=== PATIENT | female | born 1985 | race Caucasian/White ===

== ENCOUNTER → 2016-09-02 | Outpatient (CLI) | payer BC, OTHER ==
[~2016-09-02] MED LIST: ACET500T PO; ANUS2.5C2 PR; DOCU10ELUD PO; IBUP80TA PO; LANOOIN21 TOP; MOM30SS PO; PRENTAB66 PO
[2016-09-02 20:17] LABS: FREE T4 0.82 NG/DL (0.76-1.46)
[2016-09-02 20:20] LABS: PROGESTERONE 0.9 NG/ML; PROLACTIN 7.5 NG/ML
[2016-09-02 20:21] LABS: FOLLICLE STIMULATING HORMONE 4.6 mIU/mL; LUTEINIZING HORMONE 3.4 mIU/mL
== END ==
LOC: M WUC 15:27
PROVIDERS: ATTEND Specialist
DX: N93.8 Other specified abnormal uterine and vaginal bleeding (principal)

== ENCOUNTER → 2017-01-10 | Outpatient (CLI) | payer BC, OTHER ==
[2017-01-10 17:26] LABS: BASO % 0.3 % (0.0-1.0); EOS # 0.1 K/mm3 (0.0-0.50); EOS % 1.3 % (0.0-3.0); LARGE UNSTAINED CELL # 0.1 K/mm3 (0.0-0.4); LARGE UNSTAINED CELL % 1.6 % (0.0-4.0); LYMPH # 1.5 K/mm3 (1.5-4.5); LYMPH % 19.6 % (24.0-44.0); MEAN CORPUSCULAR HEMOGLOBIN 31.5 pg (27.0-33.0); MEAN CORPUSCULAR HGB CONC 33.7 g/dl (32.0-36.5); MEAN CORPUSCULAR VOLUME 93.5 fl (80.0-96.0); MONO # 0.4 K/mm3 (0.0-0.8); MONO % 5.3 % (0.0-5.0); NEUTROPHILS # 5.4 K/mm3 (1.8-7.7); NEUTROPHILS % 71.9 % (36.0-66.0); PLATELET COUNT, AUTOMATED 344 k/mm3 (150-450); RED CELL DISTRIBUTION WIDTH 12.4 % (11.5-14.5); WHITE BLOOD COUNT 7.5 K/mm3 (4.0-10.0)
[2017-01-11 11:06] LABS: HBsAg Prenatal NEGATIVE (NEGATIVE)
== END ==
LOC: M WUC 13:16
PROVIDERS: ATTEND Advanced Practice Midwife
DX: Z34.81 Encounter for supervision of other normal pregnancy, first trimester (principal)

== ENCOUNTER → 2017-01-31 | Outpatient (REF) | payer OTHER | LOC: M LAB REF 17:15 | PROVIDERS: ATTEND Specialist | DX: Z34.82 Encounter for supervision of other normal pregnancy, second trimester (principal) ==

== ENCOUNTER → 2017-02-22 | Outpatient (CLI) | payer BC, OTHER ==
--- NOTE | 2017-02-22 12:06 | REP ---
Obstetric ultrasound for anatomy: There is a single intrauterine gestation in a transverse lie. The head is to the maternal left. There is motion and cardiac activity. The heart rate is 153 beats per minute. The placenta is anterior. There is no placenta previa or abruptio, the inferior tip of the placenta is 3.8 cm above the internal cervical os. The placenta maturity is grade zero. The amniotic fluid volume subjectively is normal. The cervix measures 3.4 cm in length. The maternal adnexa and cul-de-sac are unremarkable. By the ultrasound today the gestational age is 20 weeks 2 days with an LILLY of 07/10/2017. By LMP the gestational age is 20 weeks 4 days with an LILLY of 07/08/2017. weight is 381 grams (a 0 pounds, 13 ounces). This is the 55th percentile for 20 weeks 4 days. The following anatomic structures are identified and are unremarkable: Intracranial lateral ventricles, choroid plexus, cerebellum, cisterna magna, cavum septum pellucidum, upper lip, lungs, four-chamber heart, cardiac right ventricular outflow tract, diaphragm, stomach, cord insertion, three-vessel cord, kidneys, bladder, spine and upper lower extremities. Suboptimally demonstrated is the cardiac left ventricular outflow tract. A followup study of this structure might be considered. Otherwise, no anomalies are identified. Signed by Kirt Lee MD 02/22/2017 11:58 A
== END ==
LOC: M RAD 10:35
PROVIDERS: ATTEND Specialist
DX: Z36.2 Encounter for other antenatal screening follow-up (principal)

== ENCOUNTER → 2017-04-07 | Outpatient (CLI) | payer BC, OTHER ==
[2017-04-07 18:40] LABS: BASO % 0.4 % (0.0-1.0); EOS % 0.9 % (0.0-3.0); IMMATURE GRANULOCYTE % 0.8 % (0-0); LYMPH % 19.8 % (24.0-44.0); MEAN CORPUSCULAR HEMOGLOBIN 30.8 pg (27.0-33.0); MEAN CORPUSCULAR HGB CONC 33.2 g/dl (32.0-36.5); MEAN CORPUSCULAR VOLUME 92.6 fl (80.0-96.0); MONO % 6.5 % (0.0-5.0); NEUTROPHILS % 71.6 % (36.0-66.0); PLATELET COUNT, AUTOMATED 315 10^3/uL (150-450); WHITE BLOOD COUNT 7.5 10^3/uL (4.0-10.0)
[2017-04-07 18:41] LABS: EOS # 0.1 10^3/uL (0.0-0.50); LYMPH # 1.5 10^3/uL (1.5-4.5); MONO # 0.5 10^3/uL (0.0-0.8); NEUTROPHILS # 5.4 10^3/uL (1.8-7.7)
== END ==
LOC: M LAB 14:36
PROVIDERS: ATTEND Specialist
DX: Z34.82 Encounter for supervision of other normal pregnancy, second trimester (principal); Z3A.00 Weeks of gestation of pregnancy not specified

== ENCOUNTER → 2017-04-25 | Outpatient (CLI) | payer BC, OTHER | LOC: M LAB 08:26 | PROVIDERS: ATTEND Specialist | DX: Z34.82 Encounter for supervision of other normal pregnancy, second trimester (principal); Z3A.00 Weeks of gestation of pregnancy not specified ==

== ENCOUNTER → 2017-06-07 | Outpatient (REF) | payer OTHER | LOC: M LAB REF 13:04 | DX: Z34.83 Encounter for supervision of other normal pregnancy, third trimester (principal); Z3A.00 Weeks of gestation of pregnancy not specified ==

== ENCOUNTER → 2017-06-16 | Outpatient (REF) | payer OTHER ==
[2017-06-17 00:29] LABS: CHLAMYDIA DNA AMPLIFICATION NEGATIVE (NEGATIVE); GC DNA AMPLIFICATION NEGATIVE (NEGATIVE)
== END ==
LOC: M LAB REF 17:03
DX: Z11.3 Encounter for screening for infections with a predominantly sexual mode of transmission (principal)

== ENCOUNTER 2017-07-11 02:18 | Inpatient (IN) | payer BC, OTHER ==
[2017-07-11] MEDS ORDERED: FENTANYL 2MCG/ML ROPIVACAINE 0.2% IN 0.9% NACL 200ML IVBAG As Ordered (02:30)
[2017-07-11] MEDS ORDERED: OXYTOCIN 30 UNITS IN 0.9% NaCl 500ML IV BAG (J2590) As Ordered (02:51)
[2017-07-11 02:52] LABS: HEMATOCRIT 37.5 % (36.0-47.0); HEMOGLOBIN 12.4 g/dl (12.0-16.0); MEAN CORPUSCULAR HGB CONC 33.1 g/dl (32.0-36.5); MEAN CORPUSCULAR VOLUME 87.6 fl (80.0-96.0); PLATELET COUNT, AUTOMATED 282 10^3/uL (150-450); RED BLOOD COUNT 4.28 10^6/uL (4.00-5.40); WHITE BLOOD COUNT 8.9 10^3/uL (4.0-10.0)
[2017-07-11] MEDS ORDERED: LIDOCAINE 1% MDV INJ 50 ML VIAL As Ordered (03:02)
[2017-07-11] MEDS ORDERED: METHYLERGONOVINE MALEATE 0.2 MG TAB PO (04:00)
[2017-07-11] MEDS ORDERED: RHOGAM 300 MCG (1500 IU) INJ (J2790) IM (04:00)
[2017-07-11] MEDS ORDERED: ACETAMINOPHEN 500 MG TAB PO (04:00)
[2017-07-11] MEDS ORDERED: DIBUCAINE 1% OINTMENT 30GM TOP (04:00)
[2017-07-11] MEDS ORDERED: MEASLES,MUMPS,RUBELLA VACCINE INJ (MMR-II) (90707) SC (04:00)
[2017-07-11] MEDS ORDERED: DOCUSATE SODIUM 100 MG CAP PO (04:00)
[2017-07-11] MEDS ORDERED: MOM 30ML SUSPENSION UDC PO (04:00)
[2017-07-11] MEDS ORDERED: ANUSOL HC CREAM 30GM TOP (04:00)
[2017-07-11] MEDS: IBUPROFEN 800 MG TAB PO (04:42)
[2017-07-11] MEDS: OXYTOCIN INJ 10 UNITS/ML VIAL (J2590) IM (06:51)
[2017-07-11] MEDS: LIDOCAINE 1% MDV INJ 50 ML VIAL INFIL (06:52)
[2017-07-11] MEDS: PRENATAL VITAMINS CHEWABLE TABLET PO (09:00)
== END 2017-07-12 11:25 | disposition home or self-care (01) | DRG 560 ==
LOC: M LDO 02:18 → M LDI 02:26 → M OBS 05:28
PROVIDERS: Obstetrics & Gynecology
PROC: 10E0XZZ Delivery of Products of Conception, External Approach (ICD-10-PCS; principal; 2017-07-11)
DX: O48.0 Post-term pregnancy (principal); O62.3 Precipitate labor; Z37.0 Single live birth; Z3A.40 40 weeks gestation of pregnancy

== ENCOUNTER → 2017-07-14 | Outpatient (CLI) | payer BC, OTHER | LOC: M RAD 13:09 | DX: M79.605 Pain in left leg (principal) | CPT/HCPCS: 93971 ==

== ENCOUNTER → 2017-12-01 | Outpatient (CLI) | payer BC, OTHER ==
[2017-12-01 18:07] LABS: CONTROL LINE HCG INT CTR LINE PRESENT; HCG, SERUM QUALITATIVE NEGATIVE (NEGATIVE)
[2017-12-01 20:29] LABS: CHLAMYDIA DNA AMPLIFICATION NEGATIVE (NEGATIVE); GC DNA AMPLIFICATION NEGATIVE (NEGATIVE)
== END ==
LOC: M SMT 15:15
DX: N93.0 Postcoital and contact bleeding (principal); Z11.3 Encounter for screening for infections with a predominantly sexual mode of transmission
CPT/HCPCS: 84703

== ENCOUNTER → 2017-12-12 | Outpatient (CLI) | payer BC, OTHER | LOC: M RAD 08:31 | DX: N93.0 Postcoital and contact bleeding (principal); N83.202 Unspecified ovarian cyst, left side | CPT/HCPCS: 76856 ==

== ENCOUNTER → 2018-04-25 | Outpatient (REF) | payer BC, OTHER ==
[2018-04-25 15:52] LABS: CHLAMYDIA DNA AMPLIFICATION NEGATIVE (NEGATIVE); GC DNA AMPLIFICATION NEGATIVE (NEGATIVE)
== END ==
LOC: M LAB REF 12:52
DX: A59.00 Urogenital trichomoniasis, unspecified (principal); Z11.3 Encounter for screening for infections with a predominantly sexual mode of transmission
CPT/HCPCS: 87591

== ENCOUNTER → 2018-05-31 | Outpatient (REF) | payer OTHER ==
[~2018-05-31] MED LIST changes: +IBUP-1114 PO; +MAPA500T2 PO
[2018-06-02 18:21] LABS: HPV HYBRID CAPTURE II Positive (Negative)
== END ==
LOC: M LAB REF 10:55
PROVIDERS: ATTEND Advanced Practice Midwife
DX: Z12.4 Encounter for screening for malignant neoplasm of cervix (principal)

== ENCOUNTER → 2018-06-04 | Outpatient (REF) | payer OTHER | LOC: M LAB REF 18:17 | PROVIDERS: ATTEND Obstetrics & Gynecology | DX: R87.810 Cervical high risk human papillomavirus (HPV) DNA test positive (principal) ==

== ENCOUNTER → 2018-07-26 | Outpatient (CLI) | payer BC, OTHER ==
--- NOTE | 2018-07-30 08:18 | RADONC ---
CONSULTATION NOTE DATE OF SERVICE: 07/26/2018 CHART #: [id number] DIAGNOSIS: Cervical carcinoma. STAGE: IIA2, pT2a2, N0, M0, grade 3. ECOG PERFORMANCE STATUS: 0. CONSULTATION NOTE: Ms. 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 HISTORY OF PRESENT ILLNESS: The patient was in her usual state of health, but was found to have a lesion on her cervix. On 06/21/2018, the patient was seen by Dr. Padgett and underwent a radical hysterectomy, bilateral salpingectomy, right oophorectomy, and bilateral pelvic lymphadenectomy. Pathology revealed a 4.5 cm x 3.1 cm poorly differentiated, grade 3 adenosquamous carcinoma of the cervix. The depth of invasion of the stroma was 14 mm. There was noted to be lymph vascular invasion present. The distance of invasive carcinoma from the vaginal margin was 20 mm. The distance of invasion from cervical margin was 8.5 mm. The patient has done well since surgery and was presented at the multidisciplinary tumor conference in [place] where postoperative radiation therapy was recommended. She is now being referred to us for discussion of that treatment. PAST MEDICAL HISTORY: The patient's past medical history is noncontributory. She has been in general good health. ALLERGIES: The patient has NO KNOWN DRUG ALLERGIES. SOCIAL HISTORY: The patient does not smoke cigarettes. She drinks alcohol socially. FAMILY HISTORY: The patient's family history is negative for CART[employer] EFFECTS malignancies or other cancers. REVIEW OF SYSTEMS: The patient's review of systems is noncontributory. Denies nausea, vomiting, fevers, chills, night sweats, diplopia, headaches, anxiety or depression, anorexia, weight loss, visual disturbances, chest pain, urinary or bowel difficulties, bone pain, or neurological problems. PHYSICAL EXAMINATION: The patient is a well-developed, well-nourished, 33-year-old female in no acute distress. HEENT exam is normocephalic, atraumatic. Extraocular movements are intact. There is no palpable cervical, supraclavicular, infraclavicular, axillary, or inguinal lymphadenopathy present. Lungs are clear to auscultation and percussion. Heart has a regular rate and rhythm. Abdomen is benign with no hepatosplenomegaly, masses, or tenderness. C[employer] examination was deferred at this time. Skeletal examination reveals no tenderness to pressure or percussion of the bony skeleton. Extremities reveal no clubbing, cyanosis, or edema. Neurologic exam is grossly intact, as is the remainder of the physical examination. ASSESSMENT: I believe the patient is a candidate for external beam radiation therapy and I have so informed her. I have discussed with the patient in detail the potential benefits as well as possible acute and chronic sequelae of external beam radiation therapy. We discussed logistics of treatment planning, simulation and subsequent fractionated daily radiation treatments. I have reviewed with the patient the NCCN guidelines. This clearly reports a reduction in local recurrence rates for people with risk factors such as lymph vascular invasion by addition of radiation therapy. I have given her a copy of the NCCN guidelines. I have scheduled the patient for the next available simulation slot and radiation treatments will begin subsequently. Thank you for allowing us to participate in the care of this very pleasant woman. If I could be of any further assistance or provide you with any information, please free to contact me at anytime. As always warm regards. cc: MD Nery Steinberg NP
== END ==
LOC: M ONCR 09:55
PROVIDERS: ATTEND Radiology Radiation Oncology
DX: C53.9 Malignant neoplasm of cervix uteri, unspecified (principal)

== ENCOUNTER → 2018-09-18 | Outpatient (RCR) | payer BC, OTHER ==
--- NOTE | 2018-08-21 15:08 | RADONC ---
RADIATION ONCOLOGY PROGRESS NOTE DATE: 08/20/2018 CHART NUMBER: [id number] PROGRESS NOTE: Ms. Escalera underwent her first fraction of radiation today to her pelvis. It was well tolerated without difficulty or discomfort. The patient's review of systems remains unchanged. She is overall in good condition with no difficulties. The patient's physical exam clearly showed no evidence of radiation change present since this was her first fraction. The remainder of her physical exam is unchanged. Ms. Escalera tolerated her first treatment well and radiation will continue as scheduled.
--- NOTE | 2018-08-28 07:34 | RADONC ---
RADIATION ONCOLOGY PROGRESS NOTE DATE: 08/27/2018 CHART NUMBER: [id number] Ms. Escalera is presently at a dose of 1080 cGy to her pelvis and is tolerating treatments quite well at this point with no significant difficulties related to her radiation therapy. She has no pelvic pain or other problems. REVIEW OF SYSTEMS; The patient's review of systems is noncontributory. She denies nausea, vomiting, fevers, chills, night sweats, diplopia, headaches, anxiety or depression, anorexia, weight loss, visual disturbances, chest pain, urinary or bowel difficulties, bone pain, or neurological problems. PHYSICAL EXAMINATION: The patient's skin is in good condition with no evidence of radiation change present. There is no moist or dry desquamation. The remainder of her physical exam remains unchanged. Ms. Escalera is tolerating treatments quite well and radiation will continue as scheduled.
--- NOTE | 2018-09-03 16:39 | RADONC ---
RADIATION ONCOLOGY PROGRESS NOTE DATE: 09/03/2018 CHART NUMBER [id number] Mrs. Escalera is currently receiving radiotherapy for treatment of her cervical carcinoma, stage IIA, pathologic T2a2, N0, M0, grade 3. She is currently at a dose of 1980 cGy of a proposed 4500 cGy and treatments are going well. REVIEW OF SYSTEMS: She specifically denies any nausea, vomiting, diarrhea, but does have some minimal dysuria. Denies frequency. She is complaining of some loose stools without any blood per rectum. She also denies any anxiety, depression, anorexia, weight loss or visual disturbances. She is complaining of some skin irritation in the labial area and into the perineum in general. PHYSICAL EXAMINATION: The patient has a 1+ erythematous blush in the perineum. Adenopathy is not palpable. The remainder of the physical examination is unchanged. IMPRESSION: Minimal to moderate erythema in the labial and perineal area. PLAN: Silvadene as directed. I have also advised her to perform sitz baths twice daily and to consider Imodium should she persist with frequent and loose stools. MTDD
--- NOTE | 2018-09-13 07:49 | RADONC ---
RADIATION ONCOLOGY PROGRESS NOTE DATE: 09/11/2018 CHART NUMBER: [id number] Ms. Escalera is presently a dose of 3060 cGy to her pelvis and is tolerating treatments quite well at this point with no significant difficulties related to her radiation therapy. She is having no urinary or bowel problems. The patient's review of systems is largely noncontributory other than some irritation. PHYSICAL EXAMINATION: The patient's skin is in good condition with no evidence of moist or dry desquamation. The remainder of physical exam remains unchanged. Ms. Escalera is tolerating treatments quite well, and radiation will continue as scheduled.
[2018-09-14 16:35] LABS: APPEARANCE, URINE CLEAR (CLEAR); BACTERIA, URINE AUTO NEGATIVE (NEGATIVE); BILIRUBIN, URINE AUTO NEGATIVE (NEGATIVE); BLOOD, URINE BLOOD NEGATIVE (NEGATIVE); COLOR, URINE STRAW (YELLOW); GLUCOSE, URINE (UA) AUTO NEGATIVE (NEGATIVE); KETONE, URINE AUTO NEGATIVE (NEGATIVE); LEUKOCYTE ESTERASE, URINE AUTO TRACE (NEGATIVE); NITRITE, URINE AUTO NEGATIVE (NEGATIVE); PROTEIN, URINE AUTO NEGATIVE (NEGATIVE); RBC, URINE AUTO 0 /HPF (0-3); SPECIFIC GRAVITY URINE AUTO 1.003 (1.002-1.035); SQUAMOUS EPITHELIAL CELL UR AU 0 /HPF (0-6); UROBILINOGEN, URINE AUTO 0.2 mg/dL (0.0-2.0); WBC, URINE AUTO 3 /HPF (0-3)
[~2018-09-18] MED LIST changes: -DOCU10ELUD PO; +DOCU5LIQ PO; +SILV1CRE60 TOP
== END ==
LOC: M ONCR 08-20 11:55
PROVIDERS: ATTEND Radiology Radiation Oncology
DX: C53.9 Malignant neoplasm of cervix uteri, unspecified (principal)

== ENCOUNTER 2018-09-21 15:27 | Outpatient (RCR) | payer BC, OTHER ==
--- NOTE | 2018-09-22 10:53 | RADONC ---
RADIATION ONCOLOGY TREATMENT SUMMARY DATE: 09/22/2018 CHART NUMBER: [id number] DIAGNOSIS: Cervical carcinoma. STAGE: Stage II A2, [id number], grade 3. ECOG PERFORMANCE STATUS: 0. TREATMENT SUMMARY: Ms. 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 We treated the patient to her pelvis for a total dose of 4500 cGy delivered in 25 fractions of 180 cGy each over 32 elapsed days from 08/20/2018 through 09/21/2018. The patient's pelvis was treated on a linear accelerator utilizing a 15 MV photon beam via 3-D conformal technique with anterior and posterior, left and right lateral shelley. Ms. Escalera tolerated her treatments quite well and was able to complete therapy as prescribed without interruption. I have scheduled the patient to see me again in 1 month for further followup. She will also continue to be followed by her other physicians as well. cc: MD Nery Steinberg, OLIVIA
== END 2018-10-19 ==
LOC: M ONCR 15:27
PROVIDERS: ATTEND Radiology Radiation Oncology
DX: C53.9 Malignant neoplasm of cervix uteri, unspecified (principal)

== ENCOUNTER → 2018-10-24 | Outpatient (CLI) | payer BC, OTHER ==
--- NOTE | 2018-10-25 09:18 | RADONC ---
RADIATION ONCOLOGY FOLLOW-UP NOTE DATE: 10/24/2018 CHART NUMBER: [id number] DIAGNOSIS: Cervical cancer. STAGE: IIA2, pathologic or pT2a2, N0, M0, grade 3. ECOG PERFORMANCE STATUS: 0 FOLLOW-UP NOTE: Mrs. 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 We administered postoperative radiation therapy to her which ended on 09/21/2018. She returns today for a follow-up visit with no specific complaints. REVIEW OF SYSTEMS: She specifically denies any nausea, vomiting, diarrhea, dysuria, hematuria or blood per rectum. She also denies vaginal discharge. Her energy level is excellent and she is able to maintain most day-to-day activities without any alteration of her lifestyle. Skin irritation is denied. She also denies any visual disturbances, depression, anxiety, bone pain, abdominal pain, difficulty with breathing or neurologic issues. EXAMINATION FINDINGS: The skin within the irradiated volume looks normal. There is no palpable peripheral lymphadenopathy appreciated in the cervical, supraclavicular, axillary or inguinal lymph node chains. Lungs are clear to auscultation and percussion. Heart regular without murmurs. Abdomen without evidence of hepatomegaly, masses or deep abdominal tenderness. Extremities without cyanosis, clubbing or edema. Neurologic examination physiologic. IMPRESSION: The patient is without evidence of disease at this time. PLAN: We would like her to return in approximately 6 months or p.r.n. She was advised to return to her referring physicians as per their directions and instructions. Thank you for allowing us the opportunity of participation in the joint care of this very fine patient cc: MD Nery Steinberg NP MTDD
== END ==
LOC: M ONCR 15:42
PROVIDERS: ATTEND Radiology Radiation Oncology
DX: Z85.41 Personal history of malignant neoplasm of cervix uteri (principal); Z92.3 Personal history of irradiation

== ENCOUNTER → 2018-11-27 | Outpatient (REF) | payer BC, OTHER ==
[2018-11-27 19:09] LABS: FOLLICLE STIMULATING HORMONE 98.2 mIU/mL
== END ==
LOC: M LAB REF 16:47
PROVIDERS: ATTEND Nurse Practitioner Family
DX: C53.9 Malignant neoplasm of cervix uteri, unspecified (principal)

== ENCOUNTER → 2020-11-24 | Outpatient (REF) | payer OTHER, BC | LOC: M LAB REF 19:01 | PROVIDERS: ATTEND Dermatology | DX: D22.4 Melanocytic nevi of scalp and neck (principal) ==

== ENCOUNTER → 2021-09-13 | Outpatient (CLI) | payer BC, OTHER | LOC: M WHC 14:04 | PROVIDERS: ATTEND Obstetrics & Gynecology Gynecologic Oncology | DX: R92.8 Other abnormal and inconclusive findings on diagnostic imaging of breast (principal) | CPT/HCPCS: 77065; G0279 ==

== ENCOUNTER → 2022-12-28 | Outpatient (REF) | payer OTHER, BC ==
[2022-12-28 18:17] LABS: HIV 1&2 SCREEN NEGATIVE (NEGATIVE)
== END ==
LOC: M LAB REF 16:19
PROVIDERS: ATTEND Obstetrics & Gynecology
DX: Z20.2 Contact with and (suspected) exposure to infections with a predominantly sexual mode of transmission (principal)

== ENCOUNTER → 2023-03-01 | Outpatient (CLI) | payer BC, OTHER | LOC: M WHC 12:36 | PROVIDERS: ATTEND Obstetrics & Gynecology Gynecologic Oncology | DX: E28.319 Asymptomatic premature menopause (principal); Z79.890 Hormone replacement therapy ==

== ENCOUNTER → 2023-11-21 | Outpatient (CLI) | payer BC | LOC: M WHC 15:16 | PROVIDERS: ATTEND Nurse Practitioner | DX: Z12.31 Encounter for screening mammogram for malignant neoplasm of breast (principal) ==